=== PATIENT | female | born 1970 | race Caucasian/White ===

== ENCOUNTER → 2016-11-26 | Outpatient (CLI) | payer BC ==
[2016-11-26 17:30] LABS: CHLORIDE,CL 106 mmol/L (98-110); SODIUM,NA 139 mmol/L (136-146)
== END ==
LOC: MW.CHNEURO 16:36
PROVIDERS: ATTEND Psychiatry & Neurology Neuromuscular Medicine
DX: G35 Multiple sclerosis (principal); E55.9 Vitamin D deficiency, unspecified
CPT/HCPCS: 36415; 80053; 80156; 82306; 85025

== ENCOUNTER → 2016-12-30 | Outpatient (CLI) | payer BC ==
[~2016-12-30] MED LIST: Gadobenate Dimeglumine 529 MG/ML 20 ML SDV IV ONE
--- NOTE | 2016-12-31 10:48 | MR ---
EXAMINATION: MRI of the brain with and without contrast. TECHNIQUE: Multiplanar and multisequence imaging of the brain without and following the administrati on of 18 mL of MultiHance. HISTORY: Multiple sclerosis. COMPARISON: None. FINDINGS: There are multifocal small FLAIR signal abnormalities in a periventricular and subcortica l distribution. A few areas of likely juxtacortical. Close several signal abnormalities are also not ed. The midbrain and cerebellum appear normal. There is no abnormal enhancement or diffusion restric tion to suggest active demyelination. The paranasal sinuses and mastoid air cells are clear. The or bits and globes are symmetric. The cerebellar pontine angles and craniocervical junction appear nor mal. No mass or mass effect or midline shift. No extra-axial collections. IMPRESSION: 1. Multifocal areas of white matter signal abnormality consistent with multiple sclerosis. No eviden ce of active demyelination.
== END ==
LOC: MW.MRI 16:04
PROVIDERS: ATTEND Psychiatry & Neurology Neuromuscular Medicine
DX: G35 Multiple sclerosis (principal)
CPT/HCPCS: 70553; A9577

== ENCOUNTER → 2017-01-06 | Outpatient (CLI) | payer BC ==
--- NOTE | 2017-01-07 12:10 | MR ---
EXAM DATE: 01/06/17 PATIENT'S AGE: 46 Patient: SONIDO MOREAU Facility: [place], [place] Site . Site : [id number] Study: MRI Spine Cervical [id number]/[id number] 7:30:58 PM Ordering Physician: Vernell Navarro Final Report: Indication: Multiple sclerosis. Comparison: None. Technique: Sagittal T1, T2, and STIR sequences. Axial T2/gradient sequences. post gadolinium 2 weighted sequences. Findings: Straightening of the normal cervical lordosis which may be due to muscle spasm or patient positioning. Otherwise, normal vertebral body facet alignment. No fractures. No vertebral body loss of height. No spondylolisthesis. No ligamentous injury. Multilevel patchy T2 and STIR hyperintensity within the cervical and visualized upper thoracic cord consistent with demyelinating plaques of patient`s reported multiple sclerosis. No cord atrophy or expansion. No abnormal enhancement to suggest active demyelination. C2-3 and C3-4: No spinal canal or neural foraminal narrowing. C4-5: Posterior disk bulge with no spinal canal or neural foraminal narrowing. C5-6: Disc degeneration with posterior disc bulge and disc osteophyte complex eccentric to the right. Mild narrowing of spinal canal. Mild narrowing of the bilateral neural foramina. C6-7: Disc degeneration with a shallow left paracentral disk protrusion or disk osteophyte complex. No narrowing of spinal canal. Mild narrowing of the bilateral neural foramina. C7-T1: No spinal canal or neural foraminal narrowing. No spinal canal or neural foraminal narrowing in the visualized upper thoracic spine. Impression: 1. Straightening of the normal cervical lordosis. Otherwise, normal alignment. No fractures. No spondylolisthesis. 2. Multilevel patchy T2 and STIR hyperintense lesions within the cord consistent with demyelinating plaques of multiple sclerosis. No cord atrophy. No abnormal enhancement. 3. Cervical spondylosis 4. At C5-6, mild narrowing of the spinal canal and bilateral foramina 5. At C6-7, mild narrowing of the bilateral neural foramina Dictated by Leon Lau MD @ Jan 06 2017 9:55PM (Electronic Signature) Report Signed by Proxy. [facility] MED[facility] CENTERLuis Eduardo
== END ==
LOC: MW.MRI 16:13
PROVIDERS: ATTEND Psychiatry & Neurology Neuromuscular Medicine
DX: G35 Multiple sclerosis (principal); G58.8 Other specified mononeuropathies; M47.812 Spondylosis without myelopathy or radiculopathy, cervical region; M53.82 Other specified dorsopathies, cervical region
CPT/HCPCS: 72156; A9577

== ENCOUNTER 2017-02-28 08:21 | Day surgery (SDC) | payer BC ==
[~2017-02-28 08:21] MED LIST changes: +Clindamycin Phosphate in D5W 300 MG in Premix Bag 1 BAG IV ONE; -Gadobenate Dimeglumine 529 MG/ML 20 ML SDV IV ONE; +Lactated Ringers 1,000 ML IV SCH; +Lidocaine 2% 5 ML SDV ONE; +Midazolam 1 MG/ML 2 ML SDV ONE; +Ondansetron 4 MG/2 ML SDV ONE; +Propofol 200 MG/20 ML SDV ONE; +fentaNYL 250 MCG/5 ML SDV ONE
--- NOTE | 2017-02-28 09:00 | PCM.PREANE ---
Preanesthetic Assessment - Anesthesia/Transfusion/Family Hx Anesthesia History: Prior Anesthesia Without Reaction Family History of Anesthesia Reaction: No Transfusion History: No Prior Transfusion(s) - Review of Systems General: No Symptoms Pulmonary: No Symptoms Cardiovascular: No Symptoms Gastrointestinal: No symptoms Neurological: No Symptoms Other: Reports: None - Physical Assessment NPO Status Date: 02/27/17 Height: 1.63 m Weight: 84.822 kg ASA Class: 2 Mental Status: Alert & Oriented x3 Airway Class: Mallampati = 2 Dentition: Reports: Normal Dentition ROM/Head Extension: Full Lungs: Clear to auscultation, Normal respiratory effort Cardiovascular: Regular Rate, Regular Rhythm - Allergies Allergies/Adverse Reactions: Allergies Allergy/AdvReac Type Severity Reaction Status Date / Time ampicillin [From Principen] Allergy Rash Verified 02/26/17 09:21 - Anesthesia Plan Pre-Op Medication Ordered: None - Acknowledgements Anesthesia Type Planned: General Anesthesia Pt an Appropriate Candidate for the Planned Anesthesia: Yes Alternatives and Risks of Anesthesia Discussed w Pt/Guardian: Yes Pt/Guardian Understands and Agrees with Anesthesia Plan: Yes Additional Comments: PMH: MS, migraines PreAnesthesia Questionnaire HEENT History: Reports: Other (See Below) Other HEENT History: wears glasses Cardiovascular History: Reports: Heart Murmur Other Cardiovascular History: "I think I have a heart murmur" Genitourinary History: Reports: UTI, Recurrent 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: Musculoskeletal History: Reports: Back Pain, Chronic, Fracture Other Musculoskeletal History: MS occasional need a cane to walk, herniated disc to back Neurological History: Reports: Headaches, Chronic, MS Psychiatric History: Reports: Anxiety - Past Surgical History Head Surgeries/Procedures: Reports: None Other Musculoskeletal Surgeries/Procedures:: surgery for fx arm and leg - SUBSTANCE USE Smoking Status *Q: Current Every Day Smoker Tobacco Use Within Last Twelve Months: Cigarettes Recreational Drug Use History: No - HOME MEDS Home Medications: Home Meds Ascorbic Acid 500 mg PO BID 02/26/17 [History] Biotin 2,500 mcg PO DAILY 02/26/17 [History] Cholecalciferol (Vitamin D3) [Vitamin D3] 5 tab PO ASDIRECTED 02/26/17 [History] Dalfampridine [Ampyra] 10 mg PO BID 02/26/17 [History] Diazepam [Valium] 10 mg PO BEDTIME 02/26/17 [History] Ferrous Sulfate 28 mg PO DAILY 02/26/17 [History] Fish Oil/Borage/Flax/Om3,6,9#1 [[place] 3-6-9 1,200 mg Softgel] 1 tab PO DAILY 08/03 [History] Glatiramer Acetate [Glatopa] 1 injection SUBCUT DAILY 02/26/17 [History] Gluc HCl/Csa/Donna Hy/Hyalur Ac [Glucosamine Chondroitin] 1 tab PO ASDIRECTED 08/03 [History] Hydrocodone/Acetaminophen [Hydrocodon-Acetaminophn 10-325] 1 tab PO ASDIRECTED PRN 02/26/17 [History] Ibuprofen [Advil] 2 tab PO ASDIRECTED PRN 02/26/17 [History] Ketorolac [Toradol] 10 mg PO ASDIRECTED PRN 02/26/17 [History] Multivitamin [Multivitamins] 1 tab PO DAILY 02/26/17 [History] Oxybutynin 5 mg PO BID PRN 02/26/17 [History] Oxybutynin Chloride [Ditropan Xl] 10 mg PO DAILY 02/26/17 [History] carBAMazepine [Carbamazepine] 0.5 tab PO DAILY PRN 02/26/17 [History] - CURRENT (IN HOUSE) MEDS Current Meds: Current Medications Lactated Ringer's (Ringers, Lactated) 1,000 mls @ 125 mls/hr IV ASDIRECTED ESTELLE Discontinued Medications Fentanyl (Sublimaze) Confirm Administered Dose 250 mcg .ROUTE .STK-MED ONE Stop: 02/28/17 07:27 Clindamycin Phosphate 300 mg/ (Sodium Chloride) 52 mls @ 100 mls/hr IV ONETIME ONE Stop: 02/28/17 05:31 Clindamycin Phosphate 300 mg/ (Premix) 50 mls @ 100 mls/hr IV ONETIME ONE Stop: 02/27/17 16:14 Clindamycin Phosphate 300 mg/ (Premix) 50 mls @ 100 mls/hr IV ONETIME ONE Stop: 02/28/17 05:29 Lidocaine (Xylocaine-Mpf 2%) Confirm Administered Dose 5 ml .ROUTE .STK-MED ONE Stop: 02/28/17 07:27 Midazolam HCl (Versed 1 Mg/Ml) Confirm Administered Dose 2 mg .ROUTE .STK-MED ONE Stop: 02/28/17 07:27 Ondansetron HCl (Zofran) Confirm Administered Dose 4 mg .ROUTE .STK-MED ONE Stop: 02/28/17 07:27 Phenylephrine HCl (Shen-Synephrine 0.25% Mild Nasal [place]) Confirm Administered Dose 15 ml .ROUTE .STK-MED ONE Stop: 02/28/17 08:31 Propofol (Diprivan 20 Ml) Confirm Administered Dose 200 mg .ROUTE .STK-MED ONE Stop: 02/28/17 07:27 Propofol (Diprivan 20 Ml) Confirm Administered Dose 200 mg .ROUTE .STK-MED ONE Stop: 02/28/17 07:29
[2017-02-28] MEDS ORDERED: Phenylephrine 0.5% Nasal Spray 15 ML Bot NAS ONE (09:45)
[2017-02-28] MEDS ORDERED: Lidocaine 2% with EPINEPHrine 1:100,000 20 ML MDV ONE (09:48)
[2017-02-28] MEDS ORDERED: Phenylephrine/Normal Saline 100 MCG/ML 10 ML Syringe ONE (10:26)
[2017-02-28] MEDS ORDERED: ePHEDrine 50 MG/ML SDV ONE (11:05)
[2017-02-28] MEDS: fentaNYL 100 MCG/2 ML SDV IVPUSH PRN ×5 (11:54→12:40)
[2017-02-28] MEDS ORDERED: Acetaminophen/HYDROcodone 108-2.5 MG/5 ML Soln 15 ML UD Cup PO PRN (12:03)
[2017-02-28] MEDS ORDERED: HYDROmorphone 1 MG/ML Syringe IVPUSH PRN (12:16)
--- NOTE | 2017-02-28 12:58 | PCM.POSTAN ---
POST ANESTHESIA ASSESSMENT - MENTAL STATUS Mental Status: alert, oriented - RESPIRATORY Respiratory Status: respiratory rate WNL, airway patent, O2 saturation stable - CARDIOVASCULAR CV Status: pulse rate WNL, blood pressure stable - GASTROINTESTINAL GI Status: no symptoms - POST OP HYDRATION Hydration Status: adequate & stable
[2017-02-28] MEDS ORDERED: HYDROmorphone 2 MG/ML Syringe IVPUSH PRN (13:13)
--- NOTE | 2017-02-28 15:50 | PCM48HPAN ---
Post Anesthesia Note - EVALUATION WITHIN 48HRS OF ANESTHETIC Vital Signs in Normal Range: Yes Patient Participated in Evaluation: Yes Respiratory Function Stable: Yes Airway Patent: Yes Cardiovascular Function Stable: Yes Hydration Status Stable: Yes Pain Control Satisfactory: Yes Nausea and Vomiting Control Satisfactory: Yes Mental Status Recovered: Yes
[2017-02-28 17:13] VITALS: BP 125/58
--- NOTE | 2017-02-28 22:32 | OR ---
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 POSTOPERATIVE DIAGNOSES: Tumor of the right jaw. DEMAND PLANNING ANALYST: Naa. COMPLICATIONS: None. ESTIMATED BLOOD LOSS: 20 mL of blood. ESTIMATED IV FLUIDS: 1500 mL of LR. JUSTIFICATION FOR THIS PROCEDURE: Mrs. Aileen Freeman is a 46-year-old female patient, who was initially referred to the admissions evaluator clinic by a dentist in the community for an evaluation of a large tumor on her right jaw. According to Mrs. Freeman, she had this tumor treated approximately 2 years ago in [place] by another oral and maxillofacial surgeon, but she started feeling 2 months after the procedure was done that the tumor was coming back. She waited for approximately a year and a half to 2 years to start having pain, and when she came to see me, there was a tissue growth on the right mandible with teeth #27, 28, and 29 very mobile. The treatment for her was planned in having enucleation and curettage of this large cyst and removal of 3 teeth, 27, 28, and 29 under general anesthesia in the hospital where we had better access and be able to remove the tumor in 1 piece if possible. Medical clearance was obtained. I was able to discuss all the risks and benefits with this patient. Some of the risks that I discussed in detail were the possibility for her to have some numbness of the right chin area because of the proximity of this large tumor to the mental nerve. The mental foramen was very close to inferior border of the tumor and I discussed with her that there was a possibility. I also talked to her that due to the large tumor, she had lost all the bone that was supporting teeth #27, 28, and 29 and most probably she was going to lose those teeth as part of the treatment. All questions were thoroughly answered. Consent form was obtained. A medical clearance was obtained. The patient was here n.p.o. ready to have the surgical procedure done. PROCEDURE IN DETAIL: The patient was taken down to the operating room. She was identified by name and identification badge. At that point, she was turned over to Anesthesia Team. She was nasotracheally intubated without any complications. She was then turned to the yard attendant team. She was prepped and draped in a sterile fashion for an admissions evaluator procedure, and then she was anesthetized with lidocaine 2% 1:100,000 with epinephrine. We waited 10 minutes until the anesthesia took effect. We placed an oropharyngeal throat pack, and then with a 15 blade we made circular incision around teeth #24, 25, 26, 27, 28, 29 and 30 with a releasing incision in the midline. With a #9 periosteal elevator, we reflected a full thickness mucoperiosteal flap. We were able to identify a large mass tumor on the areas of teeth #27, 28, 29. There was some yellowish liquid coming from the tumor, most probably consistent with keratin. Pathologist, Dr. Moon, was called into the operating, who was able to diagnose and evaluate this large tumor. We removed teeth #27, 28, 29 and this tumor was attached on the buccal and lingual side to this teeth. Then, sterile curettage was done with Nikolas curette. We used a bone file and we enucleated the cyst in 1 specimen and we were able to see fresh bleeding bone all the way to the inferior border of the mandible. I was not able to visualize the right mental nerve. Once the specimen was properly labeled and sent to pathology for examination, we irrigated the surgical site thoroughly with normal saline solution, and then we took sutures with 3-0 chromic in interrupted fashion. The patient tolerated the procedure well. There were no complications for surgery. There is a large defect on that side of the mandible that I told the patient on the preop evaluation that most probably she is going to require a large bone graft and eventually have dental implants for replacement of those missing teeth. There were no complications for surgery. The patient tolerated the procedure well. The oropharyngeal throat pack was removed. Irrigation was done with normal saline solution. She was turned back to the Anesthesia Team. She was extubated without any complications. She was transported to anesthesia recovery unit and she was left in the hands of the anesthesia recovery unit nurse in a stable condition. There were no complications for surgery. The patient tolerated the procedure well. CARLITA SANTIAGO /[id number]
== END 2017-02-28 16:30 | disposition home or self-care (01) ==
LOC: MW.SDS 08:21
PROVIDERS: ATTEND Dentist Oral and Maxillofacial Surgery
DX: K04.8 Radicular cyst (principal); D16.5 Benign neoplasm of lower jaw bone; K02.9 Dental caries, unspecified; F41.9 Anxiety disorder, unspecified; Z88.1 Allergy status to other antibiotic agents; Z79.899 Other long term (current) drug therapy; Z98.890 Other specified postprocedural states; F17.210 Nicotine dependence, cigarettes, uncomplicated
CPT/HCPCS: 21040; 41899; 81025; 87070; 88305; 88307; 88329; A9270; J1170; J2250; J2405; J3010; J7120; 00170; 87077; J2704

== ENCOUNTER 2021-04-17 16:24 | Emergency (ER) | payer SELFPAY ==
[2021-04-17] MEDS ORDERED: Haloperidol Lactate 5 MG/ML SDV IM ONE (16:28)
[2021-04-17] MEDS ORDERED: diphenhydrAMINE 50 MG/ML SDV IM ONE (16:28)
[2021-04-17] MEDS ORDERED: LORazepam 2 MG/ML SDV IM ONE (16:29)
[2021-04-17] MEDS ORDERED: OLANZapine 10 MG Vial ONE (16:32)
[2021-04-17] MEDS ORDERED: OLANZapine 10 MG in Water For Injection, Sterile 2.1 ML IM ONE (16:32)
[2021-04-17] MEDS ORDERED: Water For Injection, Sterile 20 ML ONE (16:33)
[2021-04-17 18:41] LABS: ACETAMINOPHEN <2.0 ug/mL; BLOOD UREA NITROGEN,BUN 11 mg/dL (7.0-18.0); CARBON DIOXIDE,CO2 25.9 mmol/L (21.0-32.0); CHLORIDE,CL 105 mmol/L (98-107); GLUCOSE RANDOM 89 mg/dL (74-106); POTASSIUM,K 3.8 mmol/L (3.5-5.1); SODIUM,NA 144 mmol/L (136-145)
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
[2021-04-17] MEDS ORDERED: cefTRIAXone 1 GM in Premix Bag 1 BAG IV ONE (19:48)
--- NOTE | 2021-04-17 19:54 | PCM.EKG ---
#1 Interpretation EKG Date: 04/17/21 Time: 16:55 Rhythm: NSR Rate (Beats/Min): 68 [place]: Normal P-Wave: Present QRS: Normal ST-T: Normal QT: Normal Comparison: NA - No Prior EKG EKG Interpretation Comments: Sinus Rhythm
--- NOTE | 2021-04-17 20:35 | CT ---
INDICATION: Altered mental status. History of multiple sclerosis. COMPARISON: MRI brain 12/30/2016. TECHNIQUE: CT of the head without IV contrast. Coronal and sagittal reconstructions are provided. FINDINGS: No intracranial hemorrhage, mass effect, or evidence of acute infarct. No midline shift. No abnormal extra-axial fluid collections. Normal caliber ventricular system. Multifocal areas of patchy low attenuation within the periventricular white matter in similar distribution to prior exam compatible with known demyelinating disease. Orbits and extraocular muscles are symmetric. The paranasal sinuses and mastoid air cells are clear. No acute fracture. Soft tissues are unremarkable. IMPRESSION: : 1. No acute intracranial findings. 2. Multifocal areas of patchy low attenuation within the periventricular white matter in similar distribution to prior exam compatible with known demyelinating disease. Please note that all CT scans at this facility use dose modulation, iterative reconstruction, and/or weight-based dosing when appropriate to reduce radiation dose to as low as reasonably achievable. Dictated by Jaquelin Lau MD @ 04/17/2021 8:33:[address] Jaquelin Lau @ Apr 17 2021 8:33PM
[2021-04-18] MEDS ORDERED: OLANZapine 10 MG Vial IM ONE (09:14)
[2021-04-18] MEDS ORDERED: Water For Injection, Sterile 20 ML SDV INJECT STA (09:21)
[2021-04-18] MEDS ORDERED: Water For Injection, Sterile 20 ML ONE (09:21)
[2021-04-18 09:55] VITALS: BP 91/48; PULSE 82
== END 2021-04-18 13:34 ==
LOC: MW.ED 16:24
DX: F23 Brief psychotic disorder (principal); Z88.1 Allergy status to other antibiotic agents
CPT/HCPCS: 36415; 70450; 80053; 80143; 80179; 80305; 80307; 81001; 81025; 84439; 84443; 85025; 87635; 93005; 96365; 96372; 99285; J0696; J1200; J1630; J2060; J3490; U0002